=== PATIENT | female | born 2000 | race Caucasian/White ===

== ENCOUNTER → 2023-11-19 15:02 | Outpatient (CLI) | payer OTHER, SELFPAY ==
--- NOTE | ~2023-11-19 | XR_ITS ---
EXAM: XR thoracic spine 3V DATE: 11/19/2023 16:04 HISTORY: M54.6, G89.29 CHRONIC RT SIDED THORACIC BACK PAIN . COMPARISON: 02/01/2014. FINDINGS: Vertebral body alignment intact. Mild stable thoracic scoliosis. Vertebral body heights pr eserved. No disc space narrowing. No traumatic malalignment or fracture. Visualized lung parenchyma i s clear. IMPRESSION: Mild stable thoracic scoliosis. Reviewed, dictated and finalized at location K.
== END ==
PROVIDERS: PCP Nurse Practitioner Family; Visit Provider Nurse Practitioner Family
DX: M54.6 Pain in thoracic spine (principal); G89.29 Other chronic pain; M41.9 Scoliosis, unspecified
CPT/HCPCS: 72072